=== PATIENT | female | born 2000 | race Caucasian/White ===

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

== ENCOUNTER 2025-04-05 11:50 | Emergency (ER) | payer OTHER, SELFPAY ==
--- OUTSIDE RECORDS SUMMARY | 2025-04-05 11:53 | XMS_ITS | Referral Summary ---
Author Organization [facility] Address [address] [place] [address] Care Team Providers Care Cmo & President Name Role Phone Alison Alexander MD Primary Care Provider + Allergies No known active allergies Medications escitalopram (LEXAPRO) 10 mg tablet Take 20 mg by mouth nightly 02/15/2021 Active Sprintec, 28, 0.25-35 mg-mcg per tablet Take 1 tablet by mouth daily 11/27/2020 Active dextroamphetami ne-amphetamine (ADDERALL) 10 mg tablet Take 10 mg by mouth daily 07/13/2021 Active ibuprofen (ADVIL,MOTRIN) 200 mg tab/cap Take 400 mg by mouth every 6 (six) hours as needed for pain Active Active Problems Problem Noted Date Diagnosed Date Patellar instability of right knee 01/10/2022 Overview (01/10/2022): Added automatically from request for surgery 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 Never 01/26/2022 Average Number of Drinks Not on file 022 Q3: How often do you have si x or more drinks on one occasion? Never 01/26/2022 Personal Safety Answer Date Recorded Getting School Help Needed Not on file 09/17 Comments Unknown Sex and Gender Information Value Date Recorded Sex Assigned at Not on file Legal Sex Female 10:03 AM CDT Gender Identity Not on file Sexual Orientation Not on file Occupation Industry Job Start Date Job End Date Retail Not on file Not on file Not on file Last Filed Vital Signs Vital Sign Reading Time Taken Comments Blood Pressure - - Pulse - - Temperature - - Respiratory Rate - - Oxygen Saturation - - Inhaled Oxygen Concentration - - Weight 104.3 kg (230 lb) 01/26/2022 2:24 PM CDT Height 167.6 cm (5' 6) 02/17/2021 1:20 PM CDT Body Mass Index 37.12 02/17/2021 1:20 PM CDT Plan of Treatment Not on file [facility] [employer] [facility] PPO [facility] PPO Care Teams Cmo & President Relationship Specialty Start Date End Date Alison Alexander MD [address] [place] [address] PCP - General Pediatrics 02/12/21
--- OUTSIDE RECORDS SUMMARY | 2025-04-05 11:53 | XMS_ITS | Clinical Summary ---
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 Overview (01/10/2022): Added automatically from request for surgery [id number] Chronic pain of right knee 11/26/2021 Surgical History Surgery Date Site/Laterality Comments NO PAST SURGERIES Medical History Medical History Date Comments Anxiety Depression ADHD (attention deficit hyperactivity disorder) december-2019 Wears glasses Last menstrual period (LMP) < 10 days ago 2021 Family History Relation Name Status Comments Mother Alive Social History Tobacco Use Types Packs/Day Years [...] file Not on file Not on file Obstetrics History Last Filed Vital Signs Vital Sign Reading Time Taken Comments Blood Pressure - - Pulse - - Temperature - - Respiratory Rate - - Oxygen Saturation - - Inhaled Oxygen Concentration - - Weight 104.3 kg (230 lb) 01/26/2022 2:24 PM CDT Height 167.6 cm (5' 6) 02/17/2021 1:20 PM CDT Body Mass Index 37.12 02/17/2021 1:20 PM CDT Plan of Treatment Health Maintenance Due Date Last Done Comments Cervical Cancer Screening 2002 Depression Screening 2002 Hepatitis C Screening 2002 Meningococcal B Vaccine (1 o f 2 - Standard) 2018 Regular Well Visit/Exam 18-64 2020 DTaP/Tdap/Td Vaccine (7 - Td or Tdap) 11/30/2022 11/30/2012, 10/08/2007, 12/15/2003, Additional history exists Covid-19 Vaccine (3 - 2023-2 5 season) 2024 03/11/2021, 02/18/2021 Influenza Vaccine (Season Ended) 2025 Hepatitis B Screening Completed 10/07/2003 , 01/14/2003, 2002 Pneumococcal vaccine <65 Completed 004, 03/12/2003, 01/14/2003, Additional history exists Varicella Vaccines Completed 10/08/2007, 12/15/2003 HPV Vaccines Completed 09/26/2014, 10/2013, 03/25/2014 Insurance [facility] P[facility] P[facility] Care Teams Structural Drafter Relationship Specialty Start Date End Date Alison Alexander MD [address] [place] [address] PCP - General Pediatrics 02/12/21
--- OUTSIDE RECORDS SUMMARY | 2025-04-05 11:54 | XMS_ITS | Data Portability ---
Author Organization [facility] [place] Address [address] [place] [address] Assessment Encounter Date Assessment Date Assessment LastModified by Organization Details LastModified Time 07/12/2022 07/12/2022 Annual gynecological exam performed. Patient will come back in a year unless there are new symptoms. Not available 07/12/2022 11:41:47 07/17/2023 07/17/2023 Annual gynecological exam performed. Patient will come back in a year unless there are new symptoms. Not available 07/17/2023 16:27:18 01/20/2025 01/20/2025 Annual gynecological exam performed. Patient will come back in a year unless there are new symptoms. [email or web address] Not available 01/20/2025 10:32:10 Plan of Treatment Reminders Order Date Submit Date Provider Last Modified By Organization Details Last Modified Time Details Appointments None recorded. Lab pap, IG + reflex HPV if ASC-U - if hpv positive run subtyping 16, 18/45 2024 025 [facility] (Lab), [address], [place], [address], 18:35:08 Referral None recorded. Procedures None recorded. Surgeries None recorded. Imaging None recorded. Medication Orders Sprintec (28) 0.25 mg-0.035 mg tablet 2024 025 [facility] [address] [place], [address], 5 10:56:29 Sprintec (28) 0.25 mg-0.035 mg tablet 2022 023 [facility] [address] [place], [address], 3 16:42:41 Sprintec (28) 0.25 mg-0.035 mg tablet 2021 022 [facility] [address] [place], [address], 2 11:54:54 Patient TargetsNo targets recorded. Patient InstructionsNo instructions recorded. Reason for Referral None Reported. Results Created Date Observation Date Name Description Value Unit Range Abnormal Flag Note LastModifiedBy Organization Detail LastModifiedTime 01/21/2001/20/2025 IMAGE GUIDE D PAP, REFLE X HPV IF ASCUS ONLY image guided Pap, reflex HPV ASCUS only SEE RESULT S BELOW abnormal CASE REPOR T: Cytol ogy Gynec ologi [facility] Repor t Case: [id number] Aut[employer] malcolm [place] Provi david: Ro Joseph, SUZIE Colle cted: 01/20 1313 Order ing Locat ion: [place] Patho log[facility] Recei jalyn: 01/21 1315 First Scree n: Mena roland, Brianne ed, [place] Patho logis t: Mo Figueroa MD Speci men: Scree jaya Pap - Image d, Cervi x STATE MENT OF ADEQU ACY: Satis facto ry for evalu ation Trans forma tion zone compo nent absen t ----- ----- ----- ----- ----- ----- ----- ----- ----- ----- ----- ----- ----- ----- ----- ----- ----- ---- FINAL DIAGN OSIS: Epith elial Cell Abnor malit y, Squam ous Cell: Atypi azalea Squam ous Cells of Undet ermin ed Signi fican ce (ASC- US). HPV RESUL TS: HPV mRNA E6/E7 : No HPV mRNA Detec manuel NOTE: This high risk HPV mRNA assay detec ts fourt een high- risk HPV types (16, 18, 31, 33, 35, 39, 45, 51, 52, 56, 58, 59, 66, 68) witho ut diffe renti ation . COMME NT: This speci men was revie wed by a Cytot echno logis t and/o r Patho logis t (as indic ated in this repor t) after evalu ation using the Thinp rep Imagi ng Syste m. CLINI [facility] INFOR MATIO N: Menst rual Statu s: LMP (if appli cable ): [facility]ini [facility] Histo ry/Pr eviou s Pap: Type of Neopl shreyas (if appli cable ): Tiffany delgado t [facility] Findi ngs: Other Histo ry: Hormo chandni (if appli cable ): SUGGE STED FOLLO W-UP: Follo w up as warra nted, based on curre nt guide lines and indiv idual patie nt consi derat ions. Not Available [facility] (Lab) [address], [place], [address], 01/24/2025 18:35:08 Result Notes None recorded. Medical Equipment None Reported. Allergies No known drug allergies Medications Name Sig Start Date Stop Date Status Note LastModified by Organization Details LastModified Time azithromyci n 250 mg tablet TAKE 2 TABLETS BY MOUTH ON DAY 1, AND THEN TAKE 1 TABLET BY MOUTH ONCE A DAY ON DAY 2 THROUGH DAY 5 07/17 completed Not Available Not Available Not Available dextroamphe tamine-amph etamine 10 mg tablet TAKE 1 TABLET BY MOUTH TWICE DAILY 07/17 completed Not Available Not Available Not Available Space Chamber USE DIRECTED 07/17 completed Not Available Not Available Not Available hydroxyzine HCl 25 mg tablet TAKE 1 TABLET BY MOUTH EVERY 6 HOURS NEEDED 07/17 completed Not Available Not Available Not Available albuterol sulfate HFA 90 mcg/actuati on aerosol inhaler INHALE 2 PUFFS BY MOUTH EVERY 3 TO 4 HOURS OR THREE TIMES DAILY UNTIL COUGH IMPROVED. NO MORE THAN 7 DAYS TOTAL. 01/20 completed Not Available Not Available Not Available dextroamphe tamine-amph etamine 5 mg tablet TAKE 1 TABLET BY MOUTH TWICE DAILY 07/12 completed Not Available Not Available Not Available escitalopra m 10 mg tablet TAKE 1 TABLET BY MOUTH ONCE DAILY 07/12 completed Not Available Not Available Not Available escitalopra m 20 mg tablet TAKE 1 TABLET BY MOUTH ONCE DAILY 07/17 completed Not Available Not Available Not Available Sprintec (28) 0.25 mg-0.035 mg tablet TAKE 1 TABLET BY MOUTH ONCE DAILY WITH A MEAL active Not Available Not Available No t Available ID NOW COVID-19 Test Kit TEST DIRECTED TODAY 07/12 completed Not Available Not Available Not Available Vitals Date Recorded Body height Body mass index (BMI) Body weight Systolic And Diastolic Provider Name and Address Organization Details Last Updated DateTime 01/20/2025 167.64 cm 42.6 kg/m2 982832.67 g 132/84 mm[Hg] Viry Ward [facility] 01/20/2025 10:39:30 Date Recorded Body height Body mass index (BMI) Body mass index (BMI) [Percentile] Per age and sex Body weight Systolic And Diastolic Provider Name and Address Organization Details Last Updated DateTime 07/12/2022 167.64 cm 42.4 kg/m2 99 % 191732. 79 g 120/80 mm[Hg] Meenakshi Willoughby [facility] 11:43:28 Date Recorded Body height Body mass index (BMI) Body mass index (BMI) [Percentile] Per age and sex Body weight Systolic And Diastolic Provider Name and Address Organization Details Last Updated DateTime 07/17/2023 167.64 cm 43.6 kg/m2 99 % 460019. 94 g 135/86 mm[Hg] Karol Bonds [facility] 16:35:53 Social History Question Answer Notes LastModified by Organizat ion Details LastModified Time Tobacco Smoking Status Never Smoker Karol riddle [facility] 07/17/2023 16:28:32 Do You Have An Advance Directive? No Information n ot available 07/12/2022 Are You Blind Or Do You Have Difficulty Seeing? No Information n ot available 07/12/2022 What Is Your Level Of Caffeine Consumption? Moderate Information not available 07/12/2022 How Much Tobacco Do You Chew? None Information not available 07/12/2022 In The 14 Days Before Symptom Onset, Have You Had Close Contact With A Laboratory-confirm ed COVID-19 While That Case Was Ill? No Information n ot available 07/12/2022 In The 14 Days Before Symptom Onset, Have You Had Close Contact With A Person Who Is Under Investigation For COVID-19 While That Person Was Ill? No Information not available 07/12/2022 Have You Been To An Area Known To Be High Risk For COVID-19? No Information not available 07/12/2022 Are You Deaf Or Do You Have Serious Difficulty Hearing? No Information not available 07/12/2022 What Type Of Diet Are You Following? REGULAR Information n ot available 07/12/2022 What Is The Highest Grade Or Level Of School You Have Completed Or The Highest Degree You Have Received? [id number] Information not available 07/12/2022 Are There Any Guns Present In Your Home? No Information not available 07/12/2022 Do You Use Protection During Sex? Usually Information not available 07/12/2022 Do You Use Your Seat Belt Or Car Seat Routinely? Yes Information not available 07/12/2022 Do You Have Smoke And Carbon Monoxide Detectors In Your Home? Yes Information not available 07/12/2022 How Much Tobacco Do You Smoke? No Information not available 07/12/2022 Do You Use Sunscreen Routinely? Yes Information not available 07/12/2022 Have You Used IV Drugs? No Information not available 07/12/2022 Do You Have Difficulty Walking Or Climbing Stairs? No Information not available 07/17/2023 Sex: Unknown Functional Status Question Answer Note LastModified by Organizat ion Details LastModified Time Do you use any illicit or recreational drugs? Yes [email or web address] Information not available 01/20/2025 What is your level of alcohol consumption? Occasional Information not available 07/12/2022 Are you able to walk? YESWOREST Information not available 07/12/2022 Are you able to care for yourself? 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 No Information not available 07/17/2023 What is your exercise level? Moderate Information not available 07/12/2022 Mental Status Question Answer Note LastModified by Organization D etails LastModified Time Do you feel stressed (tense, restless, nervous, or anxious, or unable to sleep at night)? [id number] Information not available 07/12/2022 Family History Relationship Description Onset Age of this Age Resolved Age Notes LastModified by Organization Details LastModified Time Maternal Aunt Malignant tumor of breast Not available 2021 11:44:38 Maternal Aunt Malignant tumor of parathyroid gland M Aunt x 3 [email or web address] Not available 01/20/2025 10:10:14 Mother Malignant tumor of parathyroid gland [email or web address] Not available 2024 10:10:14 Maternal Grandmother Malignant tumor of parathyroid gland [email or web address] Not available 2024 10:10:14 Medical History Condition Response Anxiety Disorder Y Depression/ depression Y Gynecological History Statement/Question Response Flow Moderate Date of Last Mammogram Date of LMP 12/18/2024 N Was last menstrual period normal Y STIs/STDs N HPV Vaccine Y Duration of Flow (days) 5 Current Control Method BCPs Are cycles usually normal Y Date of Last Colonoscopy Frequency of Cycle (Q days) 28 Sexually Active? Y Menses Monthly Y Date of DEXA bone scan Age of first menstrual cycle 13 Date of Last Pap Smear Sexual Problems? N Desired Control Method BCPs LMP Definite N Obstetrics History GPAL:G 0 P 0 0 0 0 Past Encounters Encounter ID Performer Location Encounter Start Date Encounter Closed Date Diagnosis/Indication Diagnosis SNOMED-CT Code Diagnosis ICD10 Code Diagnosis Note [id number] [facility] [address] [address] 07/12/2022 11:27:08 07/12/2022 13:20:32 Gynecologic examination 53440372 Z01.419 Take Calcium with Vitamin D 1200mg daily if not receiving in daily diet. It is strongly advised to have an annual flu shot and up can obtain at most pharmacies . If you have not had a TDap shot in the last 10 years you should obtain one as well. Discussed with patient & provided with informatio n regarding Gardisil vaccine to prevent the 4 strains for HPV that cause cervical cancer. Encourage safe sexual practices, to use condoms and limit partners if not already in a monogamous relationsh ip. Do monthly self breast exams. BRCA testing is now available for patients with strong genetic history of female cancer. If interested contact the office. Engage in daily exercise of low impact aerobic exercise 45-60 minutes 4-5 times weekly. Avoid tobacco, illicit drugs, and alcohol. This lifestyle behavior pattern will lead to less health conditions and longer life span. If BMI greater than 25 weight watchers or dietary consult advised. Pap smear is not recommende d prior to the age of 21. If you have any concerns, pelvic, or vaginal problems we can discuss testing. Patient received above instructio ns, and questions have been answered. If you have any questions please call or respond to this email. Patient was made aware of the patient portal and may obtain a paper copy of today's plan if desired.Jaun carlin due age 23yoSBE reviewedST D Screen declinedGe netic Screen discussedC olon Screen naDexa Screen naRoutine Labs na Contracept ion care management 231019262 Z30.9 Stable on current OCP that she has taken x 3yrsWe agreed to continue this method at this time.RF sent x 1yrContact office for appt if any issues.RTO x 1yr or prn [id number] [facility] [address] [address] 07/17/2023 16:25:20 07/17/2023 16:48:58 Gynecologic examination [id number] Z01.419 WWEBC - OCPhappy with this method and would like to continuer/ b/a reviewed, denies any contraindi cationsref ills sentprimar y pap at 23STI testing declineden couraged to est care with a PCPRTC in 1 yr or sooner if needed Take Calcium with Vitamin D daily if not receiving in daily diet. It is strongly advised to have an annual flu shot and up can obtain at most pharmacies . If you have not had a TDap shot in the last 10 years you should obtain one as well. Discussed with patient & provided with informatio n regarding Gardisil vaccine to prevent the 4 strains for HPV that cause cervical cancer. Encourage safe sexual practices, to use condoms and limit partners if not already in a monogamous relationsh ip. Do monthly self breast exams. BRCA testing is now available for patients with strong genetic history of female cancer. If interested contact the office. Engage in daily exercise of low impact aerobic exercise 45-60 minutes 4-5 times weekly. Avoid tobacco, illicit drugs, and alcohol. This lifestyle behavior pattern will lead to less health conditions and longer life span. If BMI greater than 25 dietary consult advised. Pap smear is not recommende d prior to the age of 21. If you have any concerns, pelvic, or vaginal problems we can discuss testing. Patient received above instructio ns, and questions have been answered. If you have any questions please call or respond to this email. Patient was made aware of the patient portal and may obtain a paper copy of today's plan if desired. encouraged to check BP at home/keep log, if elevated will need to notify office. Pt is aware current OCP would be contraindi cated if HTN is developed Contracept ion care management [id number] Z30.9 [id number] [facility] [address] [address] 01/20/2025 10:10:02 01/20/2025 13:48:49 Gynecologic examination [id number] Z01.419 WWEBC - OCP, refills sent x 12 months, r/b/a reviewedPa p - done todaySTI screen - declinedRo utine labs - PCPRTC in 1 yr or sooner if needed It is strongly advised to have an annual flu shot and up can obtain at most pharmacies . If you have not had a TDap shot in the last 10 years you should obtain one as well. Discussed with patient & provided with informatio n regarding the HPV vaccine if applicable . Encourage safe sexual practices, to use condoms and limit partners if not already in a monogamous relationsh ip. Do monthly self breast exams. BRCA testing is now available for patients with strong genetic history of female cancer. If interested contact the office. Engage in regular exercise. Avoid tobacco and illicit drugs. This lifestyle behavior pattern will lead to less health conditions and longer life span. If BMI greater than 25 dietary consult advised. Questions answered. Contracept ion care management [id number] Z30.9 Health Concerns Section Related Observation LastModified by Organization Detai ls LastModified Time None Recorded Concern Status LastModified by Organization Details LastModified Time None Recorded Advance Directives Directive N: Payers Insurance Date Sequence Insurance Name Policy Number Policy Cortes Covered Member ID Cortes Member ID Guarantor Name 01/20/2025 1 MITCH [id number] Eleniramesh Sinai [id number] Marry Noonan Notes Date Note Type Note Provider Name and Address Organization Details Recorded Time 07/12/2022 text/html Annual GYNReport ed bypatient.History:no gynecologic complaints Menstrual cycle:Normal menses Urinary symptoms:No hematuria; No incontinence Vulva:No genital lesion Vagina:Normal vaginal discharge Breast:No breast pain; No breast lump; No nipple discharge Current Contraception:Satisf ied with current contraception; Oral contraceptives Sexual complaints:No sexual complaints; No pain during intercourse; Normal libido Menopausal Symptoms:No menopausal symptoms; Normal vaginal lubrication Psychological symptoms:No depression; No anxiety; No PMDD Preventive measures:Encourage self breast examination; Encourage regular exercise; Encourage no tobacco use; Encourage regular mammograms starting age 40 Amanda Hammond, [facility]- [address], [place], [address], [facility] 07/12/2022 11:56:02 07/17/2023 text/html Annual GYNReport ed bypatient.Menstrual cycle:Normal menses Urinary symptoms:No hematuria; No incontinence Vulva:No genital lesion Vagina:Normal vaginal discharge Breast:No breast pain; No breast lump; No nipple discharge Current Contraception:Satisf ied with current contraception; Oral contraceptives Sexual complaints:No sexual complaints; No pain during intercourse; Normal libido Menopausal Symptoms:No menopausal symptoms; Normal vaginal lubrication Psychological symptoms:No depression; No anxiety; No PMDD Preventive measures:Encourage self breast examination; Encourage regular exercise; Encourage no tobacco use; Encourage regular mammograms starting age 40Notes:denies hx of DVT/PE, HTN, Stroke/OH, cancer, liver disease, or migraine with aura [facility] [address], [place], [address], [facility] 07/17/2023 16:48:05 01/20/2025 text/html Annual GYNReport ed bypatient.Menstrual cycle:Normal menses Urinary symptoms:No hematuria; No incontinence Vulva:No genital lesion Vagina:Normal vaginal discharge Breast:No breast pain; No breast lump; No nipple discharge Current Contraception:Satisf ied with current contraception; Oral contraceptives Sexual complaints:No sexual complaints; No pain during intercourse; Normal libido Menopausal Symptoms:No menopausal symptoms; Normal vaginal lubrication Psychological symptoms:No depression; No anxiety; No PMDD Preventive measures:Encourage self breast examination; Encourage regular exercise; Encourage no tobacco use; Encourage regular mammograms starting age 40Notes:24yo wweBC - OCPno pap hx [facility] [address], [place], [address], [facility] 01/20/2025 13:37:52 OBGyn Episode No OBEpisode recorded.
--- NOTE | 2025-04-05 11:56 | ED_ITS ---
HPI - Skin/Abscess/Foreign Bdy General Chief complaint: Skin/Abscess/Foreign Body Stated complaint: bite on chest Time Seen by Provider: 04/05/25 12:18 Source: patient and RN notes reviewed Mode of arrival: ambulatory Limitations: no limitations History of Present Illness HPI narrative: 24-year-old female presents with concern for insect bite on her left chest. She reports she woke up today and noticed a bite. She reports she is wrist [place] around the redness. She reports it is itchy but also tender to touch. She denies fever, body aches, chills, sweats. She has not put anything on the area. MD complaint: insect bite/sting Related Data Home Medications ?Medication ?Instructions ?Recorded ?Confirmed ?Last Taken ?Type norgestimate 0.25 mg-ethinyl tablet 04/05/25 Unknown History estradiol 0.035 mg tablet (Sprintec (28)) Allergies Allergy/AdvReac Type Severity Reaction Status Date / Time No Known Allergies Allergy Verified 04/05/25 12:04 Review of Systems Review of Systems: CONSTITUTIONAL: Denies malaise, chills, sweats, or fever. EYES: Denies redness, or discharge. ENT: Denies rhinorrhea, congestion, swollen lips, swollen tongue CARDIOVASCULAR: Denies chest pain, palpitations, or edema. RESPIRATORY: Denies cough or dyspnea. GASTROINTESTINAL: Denies abdominal pain, nausea, vomiting SKIN: Reports insect bite to the left chest MUSCULOSKELETAL: Denies joint pain or myalgia. NEUROLOGIC: Denies headache. All systems reviewed & are unremarkable except as noted in HPI and below PMFSH Comments At time of signature, agree with nursing past medical, surgical, social and family history. There is no relevant family history pertinent to the presenting complaint Exam Narrative: GENERAL: Well-appearing, well-nourished, and in no acute distress. HEAD: Normocephalic, atraumatic. EYES: PERRLA, conjunctivae clear, and EOMI. ENT: Mucous membranes moist. Oropharynx without edema, erythema or lesions. NECK: Supple. No lymphadenopathy CHEST: Clear to auscultation. No respiratory distress. HEART: Regular rate and rhythm. SKIN: Warm, dry. 6 cm x 4 cm area of erythema and mild induration with a central bite site that has very small ulceration, approximately 0.25 cm at the center with a pink tissue bed, no necrosis noted NEURO: Alert and oriented x3. PSYCH: Normal mood and affect Course Course Emergency Course: Patient is aware of diagnosis, understands and agrees to treatment plan. Anticipatory guidance given. Patient agrees to follow-up as directed and is aware of reasons to seek care at the emergency department. Portions of this record may have been created with voice recognition software Level of Care: Express Care Visit Vital Signs Vital signs: Reviewed. MDM - Skin/Abscess/Foreign Bdy MDM Narrative Medical decision making narrative: Does not appear at this time to be erythema multiforme, bullous, SJS, TEN; no evidence at this time to suggest RMSF, endocarditis or Lyme disease; patient looks well, nontoxic and is tolerating oral intake; no neurologic signs or symptoms; no headache, photophobia or neck pain; afebrile; appropriate for initial outpatient treatment; discussed the importance of follow-up, patient agrees; question, viral exanthema, contact dermatitis, allergic dermatitis, eczema, urticaria, insect bite, cellulitis. No soft palate or uvula edema, no to ngue, lip edema or other mucosal involvement, no respiratory compromise, no stridor, no wheezing, no wheezing, no history of syncope, no hypotension, no nausea, vomiting, or diarrhea. Cannot rule out bite by a venomous spider at an early stage, will prophylactically treat with antibiotics and advised close follow-up. Instructed patient to go to nearest ER immediately for any worsening symptoms including but not limited to: fever, spreading rash, pain, sore throat, headache, dizziness, chest pain, trouble breathing, or any symptoms concerning to the patient. Critical Care Time Critical Care Time Critical Care Time: No Discharge Plan Discharge Clinical Impression: Insect bite Patient Disposition: Home Condition: Stable Instructions: Insect Bite or Sting (ED) Additional Instructions: Please follow up with your Primary Care Doctor within 48-72 hours - call for an appointment. Rest and elevate affected area; apply cold compress 3-4 times daily for 10-15 minutes. Take Motrin 600mg every 8 hours with food for pain. Please take Antibiotics as directed. If you experience any worsening redness, swelling, streaking (red lines), fever or chills please go to the ER Patient Language: Panamanian Prescriptions: New amoxicillin-pot clavulanate 875-125 mg tablet 1 tablet PO Q12H 10 Days Qty: 20 0RF No Action norgestimate-ethinyl estradiol [Sprintec (28)] 0.25-0.035 mg tablet Follow-up/Referrals: PHYSICIAN,WEDDING DESIGNER [Primary Care Provider] - Time of Disposition: 12:29
[2025-04-05 12:03] VITALS: BP 127/71; PULSE 94; RESP 18; TEMP 36.7; O2SAT 100
== END 2025-04-05 12:30 | disposition home or self-care (01) ==
PROVIDERS: Emergency Provider Nurse Practitioner; Referring Provider Family Medicine
DX: S20.362A Insect bite (nonvenomous) of left front wall of thorax, initial encounter (principal); W57.XXXA Bitten or stung by nonvenomous insect and other nonvenomous arthropods, initial encounter
CPT/HCPCS: 99203; G0463

== ENCOUNTER 2025-04-15 10:58 | Emergency (ER) | payer OTHER, SELFPAY ==
--- OUTSIDE RECORDS SUMMARY | 2025-04-15 11:01 | XMS_ITS | Referral Summary ---
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
--- OUTSIDE RECORDS SUMMARY | 2025-04-15 11:01 | XMS_ITS | Clinical Summary ---
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
--- OUTSIDE RECORDS SUMMARY | 2025-04-15 11:01 | XMS_ITS | Data Portability ---
Author Organization [facility] [place] Address [address] [place] [address] Assessment Encounter Date Assessment Date Assessment LastModified [...] a year unless there are new symptoms. [email or web address] Not available 01/20/2025 10:32:10 Plan of Treatment Reminders Order Date Submit Date Provider Last Modified By Organization Details Last Modified Time Details Appointments None recorded. Lab pap, IG + reflex HPV if ASC-U - if hpv positive run subtyping 16, 18/45 2024 025 [facility] (Lab), [address], [place], [address], 18:35:08 Referral None recorded. Procedures None recorded. Surgeries None recorded. Imaging None recorded. Medication Orders Sprintec (28) 0.25 mg-0.035 mg tablet 2024 025 [facility] [address] [place], [address], 5 10:56:29 Sprintec (28) 0.25 mg-0.035 mg tablet 2022 023 [facility] [address] [place], [address], 3 16:42:41 Sprintec (28) 0.25 mg-0.035 mg tablet 2021 022 [facility] [address] [place], [address], 2 11:54:54 Patient TargetsNo targets recorded. Patient [...] patie nt consi derat ions. Not Available [facility] (Lab) [address], [place], [address], 01/24/2025 18:35:08 Result Notes None recorded. Medical [...] Updated DateTime 01/20/2025 167.64 cm 42.6 kg/m2 705928.67 g 132/84 mm[Hg] Viry Ward [facility] 01/20/2025 10:39:30 Date Recorded Body height Body mass index (BMI) Body mass index (BMI) [Percentile] Per age and sex Body weight Systolic And Diastolic Provider Name and Address Organization Details Last Updated DateTime 07/12/2022 167.64 cm 42.4 kg/m2 99 % 740072. 79 g 120/80 mm[Hg] Meenakshi Willoughby [facility] 11:43:28 Date Recorded Body height Body mass index (BMI) Body mass index (BMI) [Percentile] Per age and sex Body weight Systolic And Diastolic Provider Name and Address Organization Details Last Updated DateTime 07/17/2023 167.64 cm 43.6 kg/m2 99 % 957415. 94 g 135/86 mm[Hg] Karol Bonds [facility] 16:35:53 Social History Question Answer Notes LastModified by Organizat ion Details LastModified Time Tobacco Smoking Status Never Smoker Karol riddle [facility] 07/17/2023 16:28:32 Do You Have [...] Or The Highest Degree You Have Received? [id number] Information not available 07/12/2022 Are There Any [...] use any illicit or recreational drugs? Yes [email or web address] Information not available 01/20/2025 What is your level of alcohol consumption? Occasional Information not available 07/12/2022 Are you able to walk? YESWOREST Information not available 07/12/2022 Are you able to care for yourself? 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 No Information not available 07/17/2023 What is your exercise level? Moderate Information not available 07/12/2022 Mental Status Question Answer Note LastModified by Organization D etails LastModified Time Do you feel stressed (tense, restless, nervous, or anxious, or unable to sleep at night)? [id number] Information not available 07/12/2022 Family History Relationship Description Onset Age of this Age Resolved Age Notes LastModified by Organization Details LastModified Time Maternal Aunt Malignant tumor of breast Not available 2021 11:44:38 Maternal Aunt Malignant tumor of parathyroid gland M Aunt x 3 [email or web address] Not available 01/20/2025 10:10:14 Mother Malignant tumor of parathyroid gland Not available 2024 10:10:14 Maternal Grandmother Malignant tumor of parathyroid gland [email or web address] Not available 2024 10:10:14 Medical History Condition [...] SNOMED-CT Code Diagnosis ICD10 Code Diagnosis Note [id number] [facility] [address] [address] 07/12/2022 11:27:08 07/12/2022 13:20:32 Gynecologic examination 66565904 Z01.419 Take Calcium with Vitamin D 1200mg [...] naRoutine Labs na Contracept ion care management [id number] Z30.9 Stable on current OCP that she has taken x 3yrsWe agreed to continue this method at this time.RF sent x 1yrContact office for appt if any issues.RTO x 1yr or prn [id number] [facility] [place] [address] [address] 07/17/2023 16:25:20 07/17/2023 16:48:58 Gynecologic examination [id number] Z01.419 WWEBC - OCPhappy with this method [...] HTN is developed Contracept ion care management [id number] Z30.9 [id number] [facility] [place] [address] [address] 01/20/2025 10:10:02 01/20/2025 13:48:49 Gynecologic examination 55265822 Z01.419 WWEBC - OCP, refills sent x [...] advised. Questions answered. Contracept ion care management 118320193 Z30.9 Health Concerns Section Related Observation LastModified by Organization Detai ls LastModified Time None Recorded Concern Status LastModified by Organization Details LastModified Time None Recorded Advance Directives Directive N: Payers Insurance Date Sequence Insurance Name Policy Number Policy Cortes Covered Member ID Cortes Member ID Guarantor Name 01/20/2025 1 MITCH [id number] Eleniramesh Sinai [id number] Marry Noonan Notes Date Note Type [...] regular mammograms starting age 42 Amanda Hammond, [facility]- [address], [place], [address], [facility] 07/12/2022 11:56:02 07/17/2023 text/html Annual GYNReport [...] starting age 42Notes:denies hx of DVT/PE, HTN, Stroke/NH, cancer, liver disease, or migraine with aura [facility] [address], [place], [address], [facility] 07/17/2023 16:48:05 01/20/2025 text/html Annual [...] pap hx [facility] [address], [place], [address], [facility] 01/20/2025 13:37:52 OBGyn Episode No OBEpisode recorded.
[2025-04-15 11:04] VITALS: BP 124/79; PULSE 80; RESP 16; TEMP 36.7; O2SAT 98
--- NOTE | 2025-04-15 11:05 | ED.URI ---
HPI - URI/Sore Throat General Chief Complaint: Upper Respiratory Infection Stated Complaint: Soar Throat Time Seen by Provider: 04/15/25 11:05 Source: patient Mode of arrival: ambulatory Limitations: no limitations History of Present Illness HPI Narrative: Marry is a 24-year-old female patient presenting to the clinic today with complaints of a sore throat, cough, sinus congestion, and low-grade fever x3 days. She reports at 1:30 a.m. this morning her highest temperature was a 100.2? F. Has not taken anything for her symptoms. Recently has gotten off of Augmentin for a infected insect bite. She denies any chest pain or shortness of breath. States that her boyfriend had strep last week. Related Data Home Medications ?Medication ?Instructions ?Recorded ?Confirmed ?Last Taken ?Type norgestimate 0.25 mg-ethinyl tablet 04/05/25 Unknown History estradiol 0.035 mg tablet (Sprintec (28)) Allergies Allergy/AdvReac Type Severity Reaction Status Date / Time No Known Allergies Allergy Verified 04/15/25 11:02 Review of Systems Review of Systems: Pertinent positives per HPI. Patient denies any fever, chills, rash, headache, visual changes, dizziness, shortness of breath, chest pain, palpitations, nausea, vomiting, diarrhea, constipation, abdominal pain, or any urinary issues. PMFSH Comments At the time of my signature, I reviewed and agree with the nursing past medical, surgical, social, and family history. There is no relevant family history pertinent to the patient complaint. Exam Narrative: General: Well-developed, well nourished, in no apparent distress Head: Normocephalic, atraumatic Eyes: Pupils equally round and reactive to light bilaterally, EOM intact, sclera and conjunctive clear, no discharge, lids normal Ears: TMs intact and congested, ear canals clear, no drainage, grossly hearing normal. Nose: Nares patent, clear nasal discharge, no inflammation, no sinus tenderness. Mouth: Oral pharynx red without lesions or masses, good dentition, MMM. Neck: Supple, trachea midline, no enlargement of anterior or posterior cervical nodes, no thyroid masses or goiter palpable. Cardio: Regular rate and rhythm, s1 and s2 normal, no murmur appreciated. Resp: Clear to auscultation bilaterally, no rhonchi, rales, wheezing or rubs Course Course Emergency Course: Portions of this record may have been created with voice recognition software. Level of Care: Express Care Visit Vital Signs Vital signs: Vital signs reviewed MDM - URI/Sore Throat MDM Narrative Medical decision making narrative: At the time of visit patient is resting comfortably on the exam table. Patient appears to be nontoxic. Vital signs are stable at this time. Complaints of a sore throat, cough, sinus congestion, and low-grade fever x3 days. She Highest temperature was a 100.2? F. Has not tested for COVID or influenza. Has not taken anything for her symptoms. Has had strep exposure. Labs: COVID, influenza, and strep test were performed. Strep test was negative. We will send for culture. Plan: I suspect patient has URI/pharyngitis. Supportive measures were discussed with the patient and they voiced understanding discharge instructions and agrees to treatment plan. Return precautions reviewed Differential Diagnosis Differential diagnosis: Likely upper respiratory infection, otitis media, sinusitis, viral infection, bronchitis, influenza, pharyngitis and other (COVID) Discharge Plan Discharge Clinical Impression: Upper respiratory infection Qualifiers: URI type: unspecified URI Qualified Code(s): J06.9 - Acute upper respiratory infection, unspecified Pharyngitis Qualifiers: Pharyngitis/tonsillitis etiology: unspecified etiology Qualified Code(s): J02.9 - Acute pharyngitis, unspecified Patient Disposition: Home Condition: Stable Instructions: Antibiotic Form, Pharyngitis (ED), Cold Symptoms (ED) Additional Instructions: COVID, influenza, and strep test were all negative in the clinic today. We will send strep for culture if this comes back positive we will contact him place you on antibiotics at that time. Take prescription medications only as prescribed Increase fluids and stay well hydrated Tylenol/motrin for pain/fever Flonase and OTC antihistamines as directed Vicks vapor rub to open sinuses Sinus rinses for congestion Cepacol spray, cough drops, throat lozenges, warm tea with honey/lemon, gargle salt water to soothe throat BRAT diet for diarrhea Clear liquids x 24 hours then advance as tolerated for nausea/vomiting Go to the ED if you develop a worsening in your condition- high fever not controlled by Tylenol or Motrin, dehydration, weakness, lethargy, shortness of breath, or chest pain. Follow up with your PCP in 3-5 days if symptoms persist. Patient Language: Singaporean Prescriptions: No Action norgestimate-ethinyl estradiol [Sprintec (28)] 0.25-0.035 mg tablet amoxicillin-pot clavulanate 875-125 mg tablet 1 tablet PO Q12H 10 Days Qty: 20 0RF Follow-up/Referrals: PHYSICIAN,[facility]GERS AND ACQUISITIONS ASSOCIATE [Primary Care Provider] - Stand Alone Forms: Work/School Release IP Time of Disposition: 11:28 Quality NIHSS Nursing Documentation ED NIHSS nursing documentation: reviewed/agree
[2025-04-15 11:23] LABS: EDSTREPNEGPOS1 Negative (Negative)
[2025-04-15 11:38] LABS: EDCOVIDSCREEN Negative (Negative); EDINFLUASCREEN Negative (Negative); EDINFLUBSCREEN Negative (Negative)
== END 2025-04-15 11:32 | disposition home or self-care (01) ==
PROVIDERS: Emergency Provider Nurse Practitioner Family
DX: J06.9 Acute upper respiratory infection, unspecified (principal); J02.9 Acute pharyngitis, unspecified; Z20.822 Contact with and (suspected) exposure to COVID-19
CPT/HCPCS: 87081; 87426; 87804; 87880; 99212; G0463